=== PATIENT | female | born 1990 | race African-American/Black ===

== ENCOUNTER 2021-07-26 08:30 | Emergency (ER) | payer OTHER, SELFPAY ==
[2021-07-26 08:54] VITALS: BP 131/84; PULSE 81; RESP 16; TEMP 36.8; O2SAT 100; BMI 29.3
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
== END 2021-07-26 10:05 | disposition home or self-care (01) ==
PROVIDERS: Emergency Provider Emergency Medicine
DX: S16.1XXA Strain of muscle, fascia and tendon at neck level, initial encounter (principal); S39.012A Strain of muscle, fascia and tendon of lower back, initial encounter; V89.2XXA Person injured in unspecified motor-vehicle accident, traffic, initial encounter; Y93.9 Activity, unspecified; Y92.410 Unspecified street and highway as the place of occurrence of the external cause; Y99.9 Unspecified external cause status
CPT/HCPCS: 99283